=== PATIENT | female | born 1980 | race Caucasian/White ===

== ENCOUNTER → 2019-04-03 14:32 | Outpatient (CLI) | payer OTHER, SELFPAY ==
--- NOTE | 2019-04-03 14:35 | DI.RAD.S_ITS ---
PROCEDURE: XR ANKLE LT MIN 3V INDICATIONS: Left ankle pain TECHNIQUE: 3 views of the ankle were acquired. COMPARISON: None. FINDINGS: Bones: No fractures or dislocations. Ankle mortise is normally aligned. No suspicious bony lesions. Soft tissues: No tibiotalar joint effusion. Achilles tendon appears normal. Soft tissue swelling over lateral malleolus is seen. IMPRESSION: No gross acute ankle fracture or dislocation. Soft tissue swelling over lateral malleolus. Dictated by: Bertin Haile M.D. on 04/03/2019 at 14:51 Approved by: Bertin Haile M.D. on 04/03/2019 at 14:54
== END ==
PROVIDERS: Visit Provider Physician Assistant
DX: M25.572 Pain in left ankle and joints of left foot (principal); M79.89 Other specified soft tissue disorders
CPT/HCPCS: 73610